=== PATIENT | female | born 1990 | race Caucasian/White ===

== ENCOUNTER 2017-06-07 14:30 | Outpatient (CLI) | payer OTHER ==
[2017-06-07 15:28] LABS: BILIRUBIN,URINE NEGATIVE (NEGATIVE)
[2017-06-07 15:43] LABS: BASOPHILS % (AUTO) 0.5 %; EOSINOPHILS # (AUTO) 0.4 10^3/uL (0.0-0.7); EOSINOPHILS % (AUTO) 6.3 %; HCT - HEMATOCRIT 41.6 % (37.0-47.0); HGB - HEMOGLOBIN 14.4 g/dL (12.0-16.0); LYMPHOCYTES # (AUTO) 1.5 10^3/uL (1.5-3.5); MEAN CORPUSCULAR HEMOGLOBIN 31.7 pg (27.0-31.0); MEAN CORPUSCULAR HGB CONC 34.6 g/dL (32.0-36.0); MEAN CORPUSCULAR VOLUME 91.8 fL (81.0-99.0); MEAN PLATELET VOLUME 10.2 fL (7.9-10.8); MONOCYTES # (AUTO) 0.4 10^3/uL (0.0-1.0); MONOCYTES % (AUTO) 6.1 %; NEUTROPHILS # (AUTO) 3.6 10^3/uL (1.5-6.6); NEUTROPHILS % (AUTO) 62.1 %; NUCLEATED RED BLOOD CELLS AUTO 0.2 /100WBC; RED BLOOD COUNT 4.53 10^6/uL (4.20-5.40); RED CELL DISTRIBUTION WIDTH 13.3 % (12.0-15.0); UNCORRECTED WHITE BLOOD COUNT 5.9 x10^3/uL; WHITE BLOOD COUNT 5.9 x10^3/uL (4.8-10.8)
[2017-06-07 15:55] LABS: WBC,URINE 0-3 /HPF (0-5)
[2017-06-08 06:23] LABS: TEST RESULT REPORT
== END 2017-06-07 14:31 | disposition home or self-care (01) ==
LOC: LAB 14:30
PROVIDERS: ATTEND Obstetrics & Gynecology
DX: Z36.9 Encounter for antenatal screening, unspecified (principal)
CPT/HCPCS: 36415; 81001; 81599; 85025; 86592; 86762; 86803; 86850; 86900; 86901; 87340; 87389

== ENCOUNTER 2020-02-04 11:29 | Emergency (ER) | payer BC, OTHER ==
--- NOTE | 2020-02-04 12:01 | ED Physician Documentation ---
History of Present Illness - Stated complaint Stated Complaint: CHEST PX/TROUBLE SWOLLOWING - Chief complaint Chief Complaint: General - History obtained from History obtained from: Patient - Additonal information Additional information: Patient comes emergency department complaining of an increasing feeling of a lump in her throat for the last 2 weeks. Patient states that she has been also developing a burning pain in her chest. She has not noticed any actual reflux and has no history of this. She has been trying Tums at home, which do not seem to be working. Patient denies cough or fever. No shortness of breath. She states she is otherwise healthy. She does not smoke anything and does not chew tobacco. Patient states that the burning pain lasts all day and nothing makes it better or worse. Patient denies any history of thyroid issues. She states her throat is not sore. The problem seems to be worse with solids and she states she has to try to swallow couple times to feel like the food has actually gone down. Patient denies choking on her food. No other complaints at this time. Review of Systems Ten Systems: 10 systems reviewed and negative Constitutional: reports: Reviewed and negative Eyes: reports: Reviewed and negative Ears: reports: Reviewed and negative Nose: reports: Reviewed and negative Throat: reports: Other (lump in throat) Cardiac: reports: Reviewed and negative Respiratory: reports: Reviewed and negative GI: reports: Reviewed and negative : reports: Reviewed and negative Skin: reports: Reviewed and negative Musculoskeletal: reports: Reviewed and negative Neurologic: reports: Reviewed and negative Psychiatric: reports: Reviewed and negative Endocrine: reports: Reviewed and negative Immunocompromised: reports: Reviewed and negative PD PAST MEDICAL HISTORY - Past Medical History Cardiovascular: None Respiratory: None Endocrine/Autoimmune: None GI: None : None HEENT: None Psych: None Musculoskeletal: None Derm: None - Past Surgical History Past Surgical History: No - Present Medications Home Medications: Ambulatory Orders Medication Instructions Recorded Confirmed Ibuprofen [Motrin] 600 mg PO Q6H PRN #30 tab 03/09/16 oxyCODONE/ACET 5/325 [Percocet 5 1 each PO Q4-6H #30 tablet 03/09/16 mg/325 mg] - Allergies Allergies/Adverse Reactions: Allergies Allergy/AdvReac Type Severity Reaction Status Date / Time No Known Drug Allergies Allergy Verified 03/14/15 15:53 - Social History Does the pt smoke?: No Smoking Status: Never smoker Does the pt drink ETOH?: No Does the pt have substance abuse?: No - Immunizations Immunizations are current?: Yes - POLST Patient has POLST: No PD ED PE NORMAL - Vitals Vital signs reviewed: Yes - General General: Alert and oriented X 3, No acute distress - HEENT HEENT: PERRL - Neck Neck: Supple, no meningeal sign - Cardiac Cardiac: RRR, No murmur - Respiratory Respiratory: Clear bilaterally - Abdomen Abdomen: Normal bowel sounds, Soft, Non tender, Non distended - Derm Derm: Warm and dry - Extremities Extremities: No deformity - Neuro Neuro: Alert and oriented X 3 - Psych Psych: Normal mood, Normal affect Results - Vitals Vitals: Vital Signs - 24 hr 02/04/20 02/04/20 11:32 13:43 Temperature 36.9 C Heart Rate 103 H 77 Respiratory 18 Rate Blood Pressure 129/80 111/75 O2 Saturation 100 Oxygen O2 Source Room air - EKG (time done) 1134 Rate: Rate (enter#) (103) Rhythm: Sinus tachycardia, Other (Biatrial enlargement) [place]: Normal Intervals: Normal [place] QRS: Normal Ischemia: Normal ST segments. No: T wave inversion Compare to prior EKG: Old EKG unavailable Computer interpretation: Agree with computer - Rads (name of study) chest xr Radiology: Final report received, EMP read indepedently, See rad report (neg) CT neck Radiology: Final report received, EMP read indepedently, See rad report (neg) PD MEDICAL DECISION MAKING - ED course Complexity details: reviewed results, re-evaluated patient, considered differential, d/w patient ED course: The patient was worked up with EKG, chest x-ray, and CT scan of the neck with contrast, all of which were unremarkable. I discussed with her that her symptoms point most probably to gastroesophageal reflux. However, we have discussed other potential causes of her dysphagia and globus sensation. I have advised the patient that the best plan of action is to follow-up with her primary care physician to discuss having a swallow study and potentially, an EGD. I have offered her a prescription for antacids from the emergency department, but patient has declined. We have discussed home management of the symptoms, as well as the usual indications for return. Departure - Departure Disposition: 01 Home, Self Care Clinical Impression: Dysphagia Qualifiers: Dysphagia type: unspecified Qualified Code(s): R13.10 - Dysphagia, unspecified Chest pain Qualifiers: Chest pain type: unspecified Qualified Code(s): R07.9 - Chest pain, unspecified Condition: Stable Instructions: Dysphagia, ED Chest Pain NonCardiac Comments: Your chest x-ray, EKG, and CT scan of the neck with IV contrast all look good. There is no tumor or abnormality of any structure or organ in either your chest or your neck. It is not entirely clear why you are having the symptoms, but the most likely cause is reflux of gastric contents. This frequently causes inflammation of the esophagus which can lead to a raw, burning pain. It can also lead to a chronic sense of a "lump in the throat" or difficulty swallowing. It is very important that you follow-up with your primary care physician to discuss having a swallow study done, as well as potentially, an endoscopy for further evaluation. Please make the appointment either this afternoon or tomorrow morning to be seen within the next week for follow-up for this. Discharge Date/Time: 02/04/20 13:45
[2020-02-04] MEDS ORDERED: IOVERSOL 320 100 ML VIAL IVP ONE ×2 (12:08→13:00)
--- NOTE | 2020-02-04 12:49 | CT Report ---
PROCEDURE: SOFT TISSUE NECK W INDICATIONS: Dysphagia, globus sensation CONTRAST: IV CONTRAST: Optiray 320 ml: 80 PO CONTRAST: *NO PO CONTRAST TECHNIQUE: After the administration of intravenous contrast, 3.0 mm axial sections acquired from the sella to th e aortic arch. Additional oblique axial 3.0 mm sections acquired through the pharynx. 3 mm thick co dyana reformats were generated. For radiation dose reduction, the following was used: automated exp osure control, adjustment of mA and/or kV according to patient size. COMPARISON: None. FINDINGS: Image quality: Excellent. Lymph nodes: No enlarged lymph nodes seen throughout the neck. Vessels: Visualized vasculature appears patent. Neck spaces: The oropharynx, nasopharynx, and pharynx demonstrate no mucosal lesion. The vocal cord s, false vocal cords, pyriform sinuses, epiglottis, vallecula, and tongue base all appear normal. Ex tramucosal spaces appear unremarkable. Glands: The parotid and submandibular glands appear normal. The thyroid is normal in size. Miscellaneous: Visualized brain and orbits appear normal. Lung apices appear clear. Superficial so ft tissues appear normal. Bones: No suspicious bony lesions. Visualized sinuses and mastoids appear unremarkable. IMPRESSION: Unremarkable CT of the neck. Reviewed by: Frandy Maharaj MD on 02/04/2020 12:48 PM PDT Approved by: Frandy Maharaj MD on 02/04/2020 12:48 PM PDT Station ID: [id number]
--- NOTE | 2020-02-04 13:01 | XRAY Report ---
PROCEDURE: Chest 2 View X-Ray INDICATIONS: Cough TECHNIQUE: Two view(s) of the chest. COMPARISON: None. FINDINGS: Surgical changes and devices: None. Lungs and pleura: No pleural effusions or pneumothorax. Lungs are clear. Mediastinum: Mediastinal contours are normal. Heart size is normal. Bones and chest wall: No suspicious bony abnormalities. Soft tissues appear unremarkable. IMPRESSION: No acute cardiopulmonary process demonstrated radiographically. Reviewed by: Frandy Maharaj MD on 02/04/2020 1:00 PM PDT Approved by: Frandy Maharaj MD on 02/04/2020 1:00 PM PDT Station ID: [id number]
[2020-02-04 13:43] VITALS: BP 111/75
== END 2020-02-04 13:45 | disposition home or self-care (01) ==
LOC: ED 11:29
DX: R13.10 Dysphagia, unspecified (principal); R07.9 Chest pain, unspecified
CPT/HCPCS: 70491; 71046; 93005; 99283; 99284; Q9967

== ENCOUNTER 2020-03-30 14:10 | Emergency (ER) | payer BC ==
[2020-03-30 14:20] VITALS: BP 128/87
--- NOTE | 2020-03-30 15:26 | ED Physician Documentation ---
PD HPI CHEST PAIN - Stated complaint Stated Complaint: CHEST TIGHTNESS/FACIAL NUMBING - Chief complaint Chief Complaint: Cardiac - History obtained from History obtained from: Patient - Additional information Additional information: 29-year-old woman with history of polycystic ovarian syndrome, otherwise healthy. For the last week and a half or so she has been fatigued and nauseous which has improved but developed chest tightness which has been constant throughout the day. Over the last week and a half she is also had right-sided numbness without weakness. No difficulty walking. No shortness of breath. Review of Systems Ten Systems: 10 systems reviewed and negative Constitutional: reports: Reviewed and negative Cardiac: reports: Chest pain / pressure, Reviewed and negative. denies: Palpitations, Pedal edema, Calf pain Respiratory: denies: Dyspnea, Cough, Hemoptysis, Wheezing PD PAST MEDICAL HISTORY - Past Medical History Cardiovascular: None Respiratory: None Endocrine/Autoimmune: None GI: None : None HEENT: None Psych: None Musculoskeletal: None Derm: None - Past Surgical History Past Surgical History: No - Present Medications Home Medications: Ambulatory Orders Medication Instructions Recorded Confirmed Ibuprofen [Motrin] 600 mg PO Q6H PRN #30 tab 03/09/16 oxyCODONE/ACET 5/325 [Percocet 5 1 each PO Q4-6H #30 tablet 03/09/16 mg/325 mg] - Allergies Allergies/Adverse Reactions: Allergies Allergy/AdvReac Type Severity Reaction Status Date / Time No Known Drug Allergies Allergy Verified 03/30/20 14:20 - Social History Does the pt smoke?: No Smoking Status: Never smoker Does the pt drink ETOH?: No Does the pt have substance abuse?: No - Immunizations Immunizations are current?: Yes - POLST Patient has POLST: No PD ED PE NORMAL - Vitals Vital signs reviewed: Yes - General General: Alert and oriented X 3, No acute distress - HEENT HEENT: PERRL, EOMI - Neck Neck: Supple, no meningeal sign, No bony TTP - Cardiac Cardiac: RRR, No murmur - Respiratory Respiratory: No respiratory distress, Clear bilaterally - Abdomen Abdomen: Normal bowel sounds, Soft, Non tender - Back Back: No CVA TTP, No spinal TTP - Derm Derm: Normal color, Warm and dry - Extremities Extremities: No edema, No calf tenderness / cord - Neuro Neuro: Alert and oriented X 3, Normal speech, Other (NIHSS zero at 3:30pm) Results - Vitals Vitals: Vital Signs - 24 hr 03/30/20 14:13 Temperature 36.9 C Heart Rate 99 Respiratory 18 Rate Blood Pressure 128/87 H O2 Saturation 100 Oxygen O2 Source Room air - EKG (time done) 1416 Rate: Rate (enter#) (88) Rhythm: NSR [place]: Normal QRS: Low voltage Ischemia: Normal ST segments Computer interpretation: Agree with computer - Labs Labs: Laboratory Tests 03/30/20 03/30/20 03/30/20 15:18 15:18 15:18 WBC RBC Hgb Hct MCV MCH MCHC RDW Plt Count MPV Neut # (Auto) Lymph # (Auto) [place] # (Auto) Eos # (Auto) Baso # (Auto) Absolute Nucleated RBC Nucleated RBC % Sodium 138 Potassium 3.5 Chloride 101 Carbon Dioxide 27 Anion Gap 10.0 BUN 13 Creatinine 0.7 Estimated GFR (MDRD) 99 Glucose 115 H Calcium 9.9 Total Bilirubin 0.9 AST 17 ALT 13 Alkaline Phosphatase 35 L Troponin I High Sens < 2.3 L Total Protein 8.3 H Albumin 5.0 Globulin 3.3 Albumin/Globulin Ratio 1.5 Lipase 38 Serum HCG, Qual NEGATIVE 03/30/20 15:24 WBC 4.8 RBC 4.72 Hgb 14.9 Hct 44.6 MCV 94.5 MCH 31.6 H MCHC 33.4 RDW 12.3 Plt Count 182 MPV 12.0 H Neut # (Auto) 3.3 Lymph # (Auto) 1.0 L [place] # (Auto) 0.4 Eos # (Auto) 0.1 Baso # (Auto) 0.0 Absolute Nucleated RBC 0.00 Nucleated RBC % 0.0 Sodium Potassium Chloride Carbon Dioxide Anion Gap BUN Creatinine Estimated GFR (MDRD) Glucose Calcium Total Bilirubin AST ALT Alkaline Phosphatase Troponin I High Sens Total Protein Albumin Globulin Albumin/Globulin Ratio Lipase Serum HCG, Qual PD MEDICAL DECISION MAKING - ED course ED course: 29-year-old woman with some ongoing mild neurologic symptoms in the setting of a normal exam, now some chest tightness. Diagnostics here were negative. EKG nonischemic. Close follow-up was advised. Departure - Departure Disposition: 01 Home, Self Care Clinical Impression: Atypical chest pain, Paresthesia Condition: Good Record reviewed to determine appropriate education?: Yes Instructions: ED Chest Pain Atypical Unkn Cause Comments: .Thankfully, there is no evidence of an acute heart issue, stroke, or other acute medical emergency today. Please schedule a follow-up appointment with your physician and return anytime for new or worsening symptoms. Discharge Date/Time: 03/30/20 16:23
[2020-03-30 15:35] LABS: BASOPHILS % (AUTO) 0.8 %; EOSINOPHILS # (AUTO) 0.1 10^3/uL (0.0-0.7); EOSINOPHILS % (AUTO) 2.3 %; HGB - HEMOGLOBIN 14.9 g/dL (12.0-16.0); LYMPHOCYTES % (AUTO) 19.9 %; MEAN CORPUSCULAR HEMOGLOBIN 31.6 pg (27.0-31.0); MEAN CORPUSCULAR HGB CONC 33.4 g/dL (32.0-36.0); MEAN CORPUSCULAR VOLUME 94.5 fL (81.0-99.0); MONOCYTES # (AUTO) 0.4 10^3/uL (0.0-1.0); NEUTROPHILS # (AUTO) 3.3 10^3/uL (1.5-6.6); NEUTROPHILS % (AUTO) 68.8 %; PLT - PLATELET COUNT 182 10^3/uL (130-450); RED BLOOD COUNT 4.72 10^6/uL (4.20-5.40); RED CELL DISTRIBUTION WIDTH 12.3 % (12.0-15.0); WHITE BLOOD COUNT 4.8 x10^3/uL (4.8-10.8)
[2020-03-30 15:43] LABS: ALBUMIN/GLOBULIN RATIO 1.5 (1.0-2.2); BILIRUBIN,TOTAL 0.9 mg/dL (0.2-1.0); CALCIUM 9.9 mg/dL (8.5-10.3); CREATININE 0.7 mg/dL (0.4-1.0); TOTAL PROTEIN 8.3 g/dL (6.7-8.2)
--- NOTE | 2020-03-30 15:50 | CT Report ---
PROCEDURE: HEAD WO INDICATIONS: weak, R sided numbness TECHNIQUE: Noncontrast 4.5 mm thick angled axial sections acquired from the foramen magnum to the vertex. For r adiation dose reduction, the following was used: automated exposure control, adjustment of mA and/or kV according to patient size. COMPARISON: None. FINDINGS: Image quality: Excellent. CSF spaces: Basal cisterns are patent. No extra-axial fluid collections. Ventricles are normal in size and shape. Brain: No midline shift. No intracranial masses or hemorrhage. Garcia-white matter interface is norm al. Skull and face: Calvarium and visualized facial bones are intact, without suspicious lesions. Sinuses: Visualized sinuses and mastoids are clear. IMPRESSION: No significant intracranial abnormality is detected. If it would be helpful for clinical management decision making, please consider a dedicated brain MRI for further evaluation (assuming that there is no contraindication). Reviewed by: Gabe Fitzgerald MD on 03/30/2020 2:49 PM CLAUDIA Approved by: Gabe Fitzgerald MD on 03/30/2020 2:49 PM CLAUDIA Station ID: [id number]
--- NOTE | 2020-03-30 15:51 | XRAY Report ---
PROCEDURE: Chest 1 View X-Ray INDICATIONS: Chest Pain TECHNIQUE: One view of the chest was acquired. COMPARISON: Correlation is made with the accompanying head CT dated 03/30/2020. FINDINGS: Surgical changes and devices: None. Lungs and pleura: No pleural effusions or pneumothorax. Lungs are clear. Mediastinum: Mediastinal contours appear normal. Heart size is normal. Bones and chest wall: No suspicious bony lesions. Overlying soft tissues appear unremarkable. IMPRESSION: Normal portable chest radiograph. Reviewed by: Gabe Fitzgerald MD on 03/30/2020 2:50 PM AKDT Approved by: Gabe Fitzgerald MD on 03/30/2020 2:50 PM AKDT Station ID: [id number]
[2020-03-30 15:52] LABS: HCG,QUALITATIVE BLOOD NEGATIVE
== END 2020-03-30 16:23 | disposition home or self-care (01) ==
LOC: ED 14:10
DX: R07.89 Other chest pain (principal); R20.2 Paresthesia of skin
CPT/HCPCS: 36415; 70450; 71045; 80053; 83690; 84484; 84703; 85025; 93005; 99284

== ENCOUNTER 2021-03-16 12:22 | Outpatient (CLI) | payer BC, OTHER ==
--- NOTE | 2021-03-17 13:40 | Mammography Report ---
BILATERAL DIGITAL DIAGNOSTIC MAMMOGRAM 3D/2D: 03/16/2021 CLINICAL: Baseline exam. Palpable left breast lump. No prior exams were available for comparison. The tissue of both breasts is extremely dense, which l owers the sensitivity of mammography. No significant masses, calcifications, or other findings are seen in either breast. IMPRESSION: INCOMPLETE: NEEDS ADDITIONAL IMAGING EVALUATION There is no abnormality seen in the left breast to correspond with the area of clinical concern and p alpable abnormality indicated by triangular marker in the middle depth in the lower outer quadrant wh ich likely represent normal fibroglandular tissue. An ultrasound is recommended for further evaluati on and is scheduled to immediately follow this examination. This exam was interpreted at Station ID: [id number]. NOTE: For mammograms, a report in lay terms will be sent to the patient. Approximately 15% of breast malignancies will not be visualized mammographically. In the management of a palpable breast mass, a negative mammogram must not discourage biopsy of a clinically suspicious lesion. Electronically Signed By: Leonid Tubbs M.D. aty/:03/16/2021 13:30:40 ACR BI-RADS Category 0: Incomplete 3340F PARENCHYMAL PATTERN: (VD) - The breast(s) demonstrate(s) extremely dense parenchyma, limiting the sen sitivity of mammography. BI-RADS CATEGORY: (0) - 0 Ultrasound [id number] Immediate follow-up LATERALITY: (L)
--- NOTE | 2021-03-17 13:40 | Ultrasound Report ---
LIMITED ULTRASOUND OF LEFT BREAST: 03/16/2021 CLINICAL: Palpable left breast lump. Comparison is made to exam dated: 03/16/2021 mammogram - [facility]. Real-time ultrasound of the left breast 7 o'clock region was performed. Garcia scale images of the re al-time examination were reviewed. No significant abnormalities were seen sonographically in the left breast. IMPRESSION: NEGATIVE There is no sonographic evidence of malignancy. There is no abnormality seen in the left breast to correspond with the area of clinical concern and p alpable abnormality in the lower inner quadrant (localized to the 7 0'clock axis, 7cm from the nipple ) which likely represents normal fibroglandular tissue, however, recommend clinical follow up for pe rsistent or worsening symptoms, or development of any clinically suspicious findings. Recommend initi ating routine screening mammograms at age 40. Findings and recommendations were conveyed to the patient during today's evaluation. This exam was interpreted at Station ID: [id number]. Electronically Signed By: Leonid Tubbs M.D. aty/:03/16/2021 13:48:47 Ultrasound BI-RADS: 1 Negative BI-RADS CATEGORY: (1) - 1 RECOMMENDATION: (ADDMAM) - Recommend additional mammographic views. recall n/a LATERALITY: (B)
== END 2021-03-16 12:23 | disposition home or self-care (01) ==
LOC: DI 12:22
PROVIDERS: ATTEND Internal Medicine
DX: N60.12 Diffuse cystic mastopathy of left breast (principal); R92.2 Inconclusive mammogram

== ENCOUNTER 2021-08-04 16:17 | Outpatient (CLI) | payer BC, OTHER ==
[2021-08-04 16:41] LABS: BILIRUBIN,URINE NEGATIVE (NEGATIVE); GLUCOSE, URINE (UA) NEGATIVE (NEGATIVE); KETONES,URINE (UA) NEGATIVE (NEGATIVE); LEUKOCYTE ESTERASE, URINE NEGATIVE (NEGATIVE); NITRITE,URINE NEGATIVE (NEGATIVE); OCCULT BLOOD,URINE NEGATIVE (NEGATIVE); PROTEIN,URINE NEGATIVE (NEGATIVE); UROBILINOGEN,URINE 0.2 (NORMAL) E.U./dL (NORMAL)
[2021-08-04 17:12] LABS: CLARITY,URINE CLEAR (CLEAR)
[2021-08-04 17:56] LABS: BACTERIA,URINE None Seen /HPF (None Seen); RBC,URINE None Seen /HPF (0-5); SQUAMOUS EPITHELIAL CELL,UR FEW Squamous (<= Few); WBC,URINE 0-3 /HPF (0-5)
== END 2021-08-04 16:18 | disposition home or self-care (01) ==
LOC: LAB 16:17
PROVIDERS: ATTEND Obstetrics & Gynecology
DX: Z32.01 Encounter for pregnancy test, result positive (principal)
CPT/HCPCS: 81001; 87086

== ENCOUNTER 2021-08-09 15:54 | Outpatient (CLI) | payer BC ==
--- NOTE | 2021-08-09 19:02 | Ultrasound Report ---
PROCEDURE: OB First Trimester w/TV INDICATIONS: POSITIVE TEST OUTSIDE/PRIOR DATING DATA: Last menstrual period (LMP): 06/02/2021. LMP-based estimated date of delivery (RAMON): 03/09/2022. First dating scan (date and location): Current study, 08/09/2021. Estimated date of delivery (RAMON) from first dating scan: 03/17/2022. The below data below was generated using the current study RAMON of 03/17/2022 TECHNIQUE: Real-time scanning was performed of the fetus and maternal pelvic organs, with image documentation. Endovaginal scanning was also performed to better visualize the fetus and maternal ovaries. COMPARISON: None available FINDINGS: Embryo: Gestational sac contains products of conception including a pole, yolk sac, and unfuse d amnion. pole crown-rump length is 2.0 cm corresponding to an 8 week 4 day +/- 5 day gestation . Heart rate: 178 bpm Maternal organs: Retroverted uterus. Closed cervix. Intrauterine gestational sac. No subchorionic hem orrhage visible. The right ovary contains a corpus luteum along with several small follicles. The left ovary has a nor mal appearance. No suspicious adnexal masses. IMPRESSION: 1. Single living intrauterine with a gestational age of 8 weeks, 4 days, and estimated due date of 03/17/2022. 2. Retroverted uterus and closed cervix. 3. Right ovarian corpus luteum. Reviewed by: Iris Benavidez MD on 08/09/2021 7:01 PM PST Approved by: Iris Benavidez MD on 08/09/2021 7:01 PM PST Station ID: [id number]
== END 2021-08-09 15:55 | disposition home or self-care (01) ==
LOC: DI 15:54
PROVIDERS: ATTEND Obstetrics & Gynecology
DX: O34.531 Maternal care for retroversion of gravid uterus, first trimester (principal); O34.81 Maternal care for other abnormalities of pelvic organs, first trimester; N83.11 Corpus luteum cyst of right ovary; Z3A.08 8 weeks gestation of pregnancy; Z36.89 Encounter for other specified antenatal screening
CPT/HCPCS: 36415; 85025; 86592; 86762; 86787; 86803; 86850; 86900; 86901; 87340; 87389

== ENCOUNTER 2021-08-09 16:54 | Outpatient (CLI) | payer BC ==
[2021-08-09 17:48] LABS: BASOPHILS % (AUTO) 0.7 %; EOSINOPHILS # (AUTO) 0.2 10^3/uL (0.0-0.7); EOSINOPHILS % (AUTO) 3.8 %; HCT - HEMATOCRIT 39.3 % (37.0-47.0); HGB - HEMOGLOBIN 13.6 g/dL (12.0-16.0); LYMPHOCYTES # (AUTO) 1.5 10^3/uL (1.5-3.5); MEAN CORPUSCULAR HEMOGLOBIN 31.1 pg (27.0-31.0); MEAN CORPUSCULAR HGB CONC 34.6 g/dL (32.0-36.0); MEAN CORPUSCULAR VOLUME 89.7 fL (81.0-99.0); MEAN PLATELET VOLUME 11.5 fL (7.9-10.8); MONOCYTES # (AUTO) 0.5 10^3/uL (0.0-1.0); MONOCYTES % (AUTO) 7.6 %; NEUTROPHILS # (AUTO) 3.9 10^3/uL (1.5-6.6); NEUTROPHILS % (AUTO) 63.7 %; PLT - PLATELET COUNT 204 10^3/uL (130-450); RED BLOOD COUNT 4.38 10^6/uL (4.20-5.40); RED CELL DISTRIBUTION WIDTH 12.3 % (12.0-15.0)
[2021-08-10 11:02] LABS: HEPATITIS C ANTIBODY NON-REACTIVE (NON-REACTIVE)
[2021-08-10 11:07] LABS: HEPATITIS B SURFACE ANTIGEN NON-REACTIVE (NON-REACTIVE)
[2021-08-10 11:52] LABS: HIV AG/AB 4TH GEN NON-REACTIVE (NON-REACTIVE)
== END 2021-08-09 16:55 | disposition home or self-care (01) ==
LOC: LAB 16:54
PROVIDERS: ATTEND Obstetrics & Gynecology
DX: Z36.89 Encounter for other specified antenatal screening (principal)
CPT/HCPCS: 36415; 85025; 86592; 86762; 86787; 86803; 86850; 86900; 86901; 87340; 87389

== ENCOUNTER 2021-08-24 08:00 | Outpatient (CLI) | payer BC ==
[2021-08-24 20:23] LABS: CHLAMYDIA TRACHOMATIS DNA NEGATIVE (NEGATIVE); NEISSERIA GONORRHOEAE DNA NEGATIVE (NEGATIVE); TRICHOMONAS VAGINALIS DNA NEGATIVE (NEGATIVE)
== END 2021-08-24 23:59 ==
LOC: LAB 08:00
PROVIDERS: ATTEND Obstetrics & Gynecology
DX: Z11.3 Encounter for screening for infections with a predominantly sexual mode of transmission (principal)
CPT/HCPCS: 87491; 87591; 87661

== ENCOUNTER 2021-09-28 11:24 | Outpatient (CLI) | payer SELFPAY | END 2021-09-28 11:25 | disposition home or self-care (01) | LOC: LAB 11:24 | PROVIDERS: ATTEND Obstetrics & Gynecology | DX: O09.91 Supervision of high risk pregnancy, unspecified, first trimester (principal) | CPT/HCPCS: 36415 ==